=== PATIENT | male | born 1970 | race Caucasian/White ===

== ENCOUNTER 2024-02-15 19:35 | Emergency (ER) | payer OTHER, SELFPAY ==
[2024-02-15 19:37] VITALS: BP 117/87
--- NOTE | 2024-02-15 20:12 | ED.GENMED ---
History of Present Illness
General
Chief Complaint: Skin Problem
Source: patient
Exam Limitations: none
Time Seen by Provider: 02/15/24 19:50
History of Present Illness
History of Present Illness:
This is a 54 year old male that comes in with c/o right shoulder lump. States that about 2.5-3 years ago he got a splinter in his shoulder. states that this developed a bump and he went to and they cut it and cleaned it out. State that 1.5 years
ago it came back like the half of a [place] and it was just there. Last week he picked up a back of [place] and that night he started with irritation in the right posterior shoulder and now he has a large lump. Denies any fever, chills, nausea,
vomiting, dairrhea.
Past History
Past History
ED Past Medical History: None; Negative Asthma, HTN, Hypercholesterolemia or NIDDM
ED Past Surgical History: Tonsilectomy and Other (Teeth extracted)
Social History
Tobacco: Other (Chews Tobacco)
Alcohol: Occasional
Drug: Marijuana
Personal:
Living: with family
Review of Systems
Review of Systems
All Other Systems: ROS reviewed and negative except as documented in HPI and ROS
Constitutional: Reports no symptoms; Denies fever or chills
EENT: Reports no symptoms
Respiratory: Reports no symptoms
Cardiac: Reports no symptoms
ABD/GI: Reports no symptoms; Denies abdominal pain, nausea, vomiting or diarrhea
: Reports no symptoms
Musculoskeletal: Reports no symptoms
Skin: Reports other (Lump on the right shoulder)
Neurological: Reports no symptoms
Psychiatric: Reports no symptoms
Phy Exam
General Physical Exam
General Presentation: well appearing and no apparent distress
General age: appears stated age
General Skin: warm and dry
General Habitus: normal
General Mental: alert
General Hydration: appears well hydrated
Eye Exam
Eye Exam: EOMI
Musculoskeletal Exam
Musculoskeletal Exam: full ROM and no edema
Skin Exam
Skin Exam: normal color, warm/dry, no rash, no petechia and other (Right posterior shoulder abscess, )
Psychiatric Exam
Psychiatric Exam: normal mood/affect
Course
Orders/Labs/Results
Orders:
Orders
02/15/24 20:11
Wound Culture [Wound/Abscess/Other Culture] Urgent
JUAN Source: Shoulder
Specimen Description: Right
Cephalexin Monohydrate [Keflex] 500 mg PO NOW STA
Sulfamethox./Trimethoprim Ds [Bactrim Ds 800 mg/160 mg] 1 tablet PO NOW STA
Vital Signs
Initial and Last Documented VS:
Initial Vital Signs
Temp Pulse Resp BP Pulse Ox
98.3 F 89 20 117/87 97
02/15/24 19:37 02/15/24 19:37 02/15/24 19:37 02/15/24 19:37 02/15/24 19:37
Last Documented Vital Signs
Temp Pulse Resp BP Pulse Ox
98.3 F 89 20 117/87 97
02/15/24 19:37 02/15/24 19:37 02/15/24 19:37 02/15/24 19:37 02/15/24 19:37
Procedures
Incision/Drainage/Joint Aspiration
Right Posterior Shoulder:
Anethesia: 1% Lidocaine with Epi
Preparation: cleaned with Betadine (and alcohol)
Type of procedure: incise
Nature of site: abscess
Description of abscess: greater than 3cm
How much fluid was obtained?: large amount
Fluid description: foul smelling and other (Cottage cheese like white)
Treatment: packed with gauze and antibiotics started
MDM/Problems Addressed
Differential Diagnosis Includes:
Right shoulder abscess
MDM/Problems Addressed:
This is a 54 year old male that carried a bag of concrete and this causes an area that had an abscess in the past to develop again
Will Drain abscess, pack and place on antibiotics. patient to follow up with the PCP on Tuesday. Patient to remove the packing in 2 days. Will start on antibiotics. Return with redness, fever, or any other concerns.
Chronic conditions affecting care:
NA
Acute Exacerbation and/or Progression of Chronic Illness:
NA
*Pulse Oximetry
Patient hypoxic: no
*EKG
Interpreted by ED Provider?: NA
Rate: EKG- N/A
*Art Handler Interpretation
Rate: Art Handler- N/A
*Critical Care Note
Total Time (30-74mins, 75-104mins- exclusive of procedures): Not Applicable
ED Attending Note
-
Portions of this chart may have been created with voice recognition software.� Occasional wrong word or��sound alike� substitutions may have occurred due to the inherent limitations of voice recognition software.
Discharge Plan
Departure
Patient Disposition: Home (Routine Discharge)
Date of Disposition: 02/15/24
Time of Disposition: 20:24
Patient with high blood pressure during this ER visit?: No
Condition: Good
Covid-19: Not Applicable
Discharge Problem:
Abscess of right shoulder, Abscess of skin of right shoulder
Instructions: Wound Care (DC), Skin Abscess
Prescriptions:
New
sulfamethoxazole-trimethoprim [Bactrim DS] 800-160 mg tablet
1 tab PO BID Qty: 19 0RF
cephalexin 500 mg capsule
500 mg PO BID 10 Days Qty: 19 0RF
Activity Restrictions/Additional Instructions:
As discussed, you had an abscess of the right shouler. This has been opened and drained and then packed. Please remove the packing in 2 days. You have been started on antibiotics and given your first dose here. You have had your prescriptions sent
to your pharmacy. Please take as directed until finished. Follow up with the family doctor in 2-3 days for recheck. IF YOU HAVE ANY REDNESS, FEVER, OR YOU HAVE ANY OTHER CONCERNS PLEASE RETURN TO THE EMERGENCY ROOM.
Interventions
Interventions:
*Risk Screen - Suicide Last Done: 02/15/24 19:37
*General Assessment Last Done: 02/15/24 19:37
*Neglect/Abuse Screening Last Done: 02/15/24 19:37
ED- Fall Risk Assessment Last Done: 02/15/24 19:44
ED-Skin Assessment Last Done: 02/15/24 19:44
Discharge Date and Time
Print Language: [id number]
[2024-02-15] MEDS: BACTRIM DS 800 MG/160 MG 1 TABLET PO (20:19)
[2024-02-15] MEDS: KEFLEX 500 MG PO (20:19)
== END 2024-02-15 20:30 | disposition home or self-care (01) ==
LOC: EMR 19:35
PROVIDERS: EMERGENCY PHYSICIAN Emergency Medicine; FAMILY PHYSICIAN Family Medicine
DX: L02.413 Cutaneous abscess of right upper limb (principal)
CPT/HCPCS: 99283; 10060; 87070; 87147; 87205